=== PATIENT | female | born 1940 | race Caucasian/White ===

== ENCOUNTER 2022-08-29 14:26 | Emergency (ER) | payer MEDICARE, OTHER ==
[~2022-08-29] VITALS: Ht 139.7 cm; Wt 46.3 kg
[2022-08-29 15:12] LABS: BASO # 0.01 K/mm3 (0.02-0.10); HEMATOCRIT 28.1 % (37.0-47.0); LYMPH# 1.35 K/mm3 (1.50-4.00); MEAN CELL VOLUME 89 fl (78-100); MEAN CORPUSCULAR HEMOGLOBIN 29 pg (27-31); MEAN CORPUSCULAR HGB CONC 32 g/dL (33-37); MEAN PLATELET VOLUME 10.5 fl (7.4-10.4); MONO # 0.52 K/mm3 (0.20-0.80); PLATELET COUNT 142 K/mm3 (130-400); RED BLOOD COUNT 3.15 M/mm3 (4.10-5.30); RED CELL DISTRIBUTION WIDTH 13.5 % (11.5-14.5); WHITE BLOOD COUNT 6.7 K/mm3 (4.8-10.8)
[2022-08-29 15:23] LABS: CALCIUM 9.1 mg/dL (8.3-10.5); PROTHROMBIN TIME 11.6 SECONDS (9.0-12.0)
[2022-08-29 15:24] LABS: TOTAL PROTEIN 6.5 g/dL (6.2-8.1)
[2022-08-29 15:26] LABS: TOTAL BILIRUBIN 0.3 mg/dL (0.2-1.2)
[2022-08-29 15:37] LABS: TROPONIN-I 0.083 ng/mL (<0.030)
[2022-08-29 16:05] LABS: PH-URINE 6.5 (5.0 - 8.0); URINE APPEARANCE CLOUDY; URINE BILIRUBIN NEGATIVE (NEGATIVE); URINE COLOR DARK YELLOW; URINE GLUCOSE NEGATIVE (NEGATIVE); URINE KETONE NEGATIVE (NEGATIVE); URINE PROTEIN(semi-quant) 3+ (NEGATIVE); URINE UROBILINOGEN 1 mg/dL (NORMAL)
[2022-08-29 16:06] LABS: URINE BLOOD 250 ery/uL (NEGATIVE); URINE LEUKOCYTE ESTERASE 2+ (NEGATIVE); URINE NITRATE NEGATIVE (NEGATIVE); URINE WBC >50 /hpf (0-3)
[2022-08-29] MEDS ORDERED: WIXELA 250-501 EACH IH (16:52)
[2022-08-29] MEDS ORDERED: INCRUSE EL62.5 MCG/A IH (18:15)
[2022-08-29] MEDS ORDERED: LIDOCAINE PAIN1 EACH TP (18:16)
[2022-08-29] MEDS ORDERED: XANAX0.5 M1 PO (18:16)
[2022-08-29] MEDS ORDERED: DICLOFENAC SOD100 GM TP (18:17)
[2022-08-29] MEDS ORDERED: TIZANIDINE HYDRO2 M1 PO (18:18)
[2022-08-29] MEDS ORDERED: NORCO 325 MG-51 TA1 PO (18:18)
[2022-08-29] MEDS ORDERED: IPRATROPIUM BROM3 M1 IH (18:19)
[2022-08-29] MEDS ORDERED: MUCINEX 60600 MG/TA1 PO (18:19)
[2022-08-29] MEDS ORDERED: CLARITIN10 M1 PO (18:19)
[2022-08-29] MEDS ORDERED: PROAIR RESPICL90 MCG IH (18:20)
[2022-08-29] MEDS ORDERED: SENNA LAX8.6 M1 PO (18:20)
[2022-08-29] MEDS ORDERED: CITALOPRAM HBR10 MG PO (18:21)
[2022-08-29 18:45] VITALS: BP 112/39
== END 2022-08-29 19:00 | disposition short-term general hospital (02) ==
LOC: ED 14:26
PROVIDERS: Family Medicine
DX: I13.0 Hypertensive heart and chronic kidney disease with heart failure and stage 1 through stage 4 chronic kidney disease, or unspecified chronic kidney disease (principal); E11.22 Type 2 diabetes mellitus with diabetic chronic kidney disease; N18.9 Chronic kidney disease, unspecified; I50.30 Unspecified diastolic (congestive) heart failure; N17.9 Acute kidney failure, unspecified; R41.82 Altered mental status, unspecified; N39.0 Urinary tract infection, site not specified; J44.1 Chronic obstructive pulmonary disease with (acute) exacerbation; I21.4 Non-ST elevation (NSTEMI) myocardial infarction; R74.8 Abnormal levels of other serum enzymes; R79.89 Other specified abnormal findings of blood chemistry; R94.4 Abnormal results of kidney function studies; D64.9 Anemia, unspecified; Z87.448 Personal history of other diseases of urinary system; Z28.310 Unvaccinated for COVID-19
CPT/HCPCS: J0696; J1650; J1885; J1940; J2310; J2930; J7030

== ENCOUNTER 2024-02-09 14:13 | Emergency (ER) | payer MEDICARE, OTHER ==
[~2024-02-09] VITALS: Ht 139.7 cm; Wt 46.3 kg
[~2024-02-09 14:13] MED LIST: CITALOPRAM HBR10 MG PO; CLARITIN10 M1 PO; DICLOFENAC SOD100 GM TP; INCRUSE EL62.5 MCG/A IH; IPRATROPIUM BROM3 M1 IH; LIDOCAINE PAIN1 EACH TP; MUCINEX 60600 MG/TA1 PO; NORCO 325 MG-51 TA1 PO; PROAIR RESPICL90 MCG IH; SENNA LAX8.6 M1 PO; TIZANIDINE HYDRO2 M1 PO; WIXELA 250-501 EACH IH; XANAX0.5 M1 PO
[2024-02-09 15:23] LABS: HEMATOCRIT 33.6 % (37.0-47.0); HEMOGLOBIN 11.1 g/dL (12.5-16.0); LYMPH# 1.44 K/mm3 (1.50-4.00); MEAN CELL VOLUME 97 fl (78-100); MEAN CORPUSCULAR HEMOGLOBIN 32 pg (27-31); MEAN CORPUSCULAR HGB CONC 33 g/dL (33-37); MONO # 0.33 K/mm3 (0.20-0.80); NEU # 4.15 K/mm3 (1.40-6.50); PLATELET COUNT 160 K/mm3 (130-400); RED BLOOD COUNT 3.48 M/mm3 (4.10-5.30); RED CELL DISTRIBUTION WIDTH 13.6 % (11.5-14.5); WHITE BLOOD COUNT 5.9 K/mm3 (4.8-10.8)
[2024-02-09 15:34] LABS: ALBUMIN 3.3 g/dL (3.4-4.8)
[2024-02-09 15:36] LABS: CALCIUM 9.9 mg/dL (8.3-10.5)
[2024-02-09 15:39] LABS: TOTAL BILIRUBIN 0.7 mg/dL (0.2-1.2)
[2024-02-09] MEDS ORDERED: oxyCODONE/Acetaminophen 5-325 MG TAB PO ONE (15:45)
[2024-02-09 16:23] LABS: PH-URINE 6.5 (5.0 - 8.0); URINE APPEARANCE CLEAR (CLEAR); URINE BILIRUBIN NEGATIVE (NEGATIVE); URINE BLOOD TRACE-INTACT (NEGATIVE); URINE COLOR YELLOW (YELLOW); URINE GLUCOSE NEGATIVE (NEGATIVE); URINE KETONE NEGATIVE (NEGATIVE); URINE LEUKOCYTE ESTERASE 2+ (NEGATIVE); URINE NITRATE POSITIVE (NEGATIVE); URINE PROTEIN(semi-quant) 2+ (NEGATIVE)
[2024-02-09] MEDS ORDERED: MACROBID 100 M100 MG PO (16:41)
[2024-02-09] MEDS ORDERED: cefTRIAXone 1 G in Water For Injection,Sterile 10 ML IV ONE (16:45)
[2024-02-09 18:15] VITALS: BP 146/53
== END 2024-02-09 18:15 | disposition home or self-care (01) ==
LOC: ED 14:13
PROVIDERS: Nurse Practitioner Family
DX: N39.0 Urinary tract infection, site not specified (principal); L25.9 Unspecified contact dermatitis, unspecified cause; F11.23 Opioid dependence with withdrawal; Z88.0 Allergy status to penicillin; Z88.1 Allergy status to other antibiotic agents; Z88.2 Allergy status to sulfonamides
CPT/HCPCS: J0696